=== PATIENT | female | born 1945 | race Caucasian/White ===

== ENCOUNTER 2017-06-08 15:36 | Emergency (ER) | payer MEDICARE ==
[~2017-06-08] VITALS: Ht 172.7 cm; Wt 98.4 kg
[2017-06-08 15:39] VITALS: Ht 172.7 cm; Wt 98.4 kg
[2017-06-08 17:51] VITALS: BP 156/85
== END 2017-06-08 17:31 | disposition home or self-care (01) ==
LOC: ED 15:36
DX: S01.81XA Laceration without foreign body of other part of head, initial encounter (principal); S52.502A Unspecified fracture of the lower end of left radius, initial encounter for closed fracture; I10 Essential (primary) hypertension; W20.8XXA Other cause of strike by thrown, projected or falling object, initial encounter; Y93.9 Activity, unspecified; Y92.9 Unspecified place or not applicable; Y99.9 Unspecified external cause status
CPT/HCPCS: 90715; A4570; J1885; J2001; Q0092